=== PATIENT | male | born 1965 | race Caucasian/White ===

== ENCOUNTER → 2016-06-10 | Outpatient (CLI) | payer OTHER ==
[~2016-06-10] MED LIST: MEDROL4 MG/DOSE- PO; VICODIN PO
--- NOTE | ~2016-06-10 | EKG ---
PATIENT: LIZBETH VELASCO UNIT #: [id number] Ventricular Rate: 65 BPM Atrial Rate: 65 BPM P-R Interval: 160 ms QRS Duration: 94 ms Q-T Interval: 408 ms QTC Calculation(Bezet): 424 ms P [place]: 68 degrees Calculated R [place]: 70 degrees Calculated T [place]: 56 degrees Diagnosis Line: Normal sinus rhythm Diagnosis Line: Low voltage QRS Diagnosis Line: Borderline ECG Diagnosis Line: No previous ECGs available Diagnosis Line: Confirmed by AKHIL GIL MD ([id number]) on Diagnosis Line: 06/12/2016 8:46:01 AM INTERPRETING MD: GERALD
[2016-06-10 17:20] LABS: HEMOGLOBIN 14.7 gm/dL (13.0-16.0); MEAN CELL VOLUME 96.7 FL (83-96); MEAN CORPUSCULAR HEMOGLOBIN 32.4 PG (28-34); MEAN CORPUSCULAR HGB CONC 33.5 g/dL (30-36); MEAN PLATELET VOLUME 6.9 FL (6.5-11.5); RED BLOOD COUNT 4.55 X10e (3.90-5.60); WHITE BLOOD COUNT 9.3 X10e3 (4.0-10.5)
[2016-06-10 17:38] LABS: CALCIUM SERUM 8.8 mg/dL (8.4-10.2); CREATININE SERUM 0.9 mg/dL (0.6-1.4); GLOM FILT RATE Estimated 98.5 mL/min (>60); POTASSIUM 3.8 mmol/L (3.5-5.1)
== END | disposition home or self-care (01) ==
LOC: CLAB 16:35
PROVIDERS: Specialist
DX: Z01.818 Encounter for other preprocedural examination (principal); J35.3 Hypertrophy of tonsils with hypertrophy of adenoids
CPT/HCPCS: 36415; 80048; 85027; 93005